=== PATIENT | female | born 1960 | race Caucasian/White ===

== ENCOUNTER 2018-01-28 09:12 | Emergency (ER) | payer BC, OTHER ==
[~2018-01-28 09:12] MED LIST: AMLO25PO PO; FAMO40TA7 PO; INSU100I3 SQ; INSU100V12 SQ; LOSA1TAB2 PO; RALO60TA PO; ROSU20TA PO; TYL3 PO; VENL75TA63 PO; VITA400C70 PO
[2018-01-28] MEDS ORDERED: ONDANSETRON HCL MDV 20ML 2 MG/ML VIAL ONE (09:56)
[2018-01-28] MEDS ORDERED: SODIUM CHLORIDE 0.9% 1000ML 1,000 ML IV ONE (09:56)
[2018-01-28 10:00] LABS: BASOPHILS % (AUTO) 0.4 % (0.0-5.0); EOSINOPHILS % (AUTO) 0.6 % (0.0-8.0); LYMPHOCYTES % (AUTO) 14.2 % (21.0-51.0); MEAN CORPUSCULAR HGB CONC 34.5 g/dL (32.0-36.0); MONOCYTES % (AUTO) 8.6 % (3.0-13.0); NEUTROPHILS % (AUTO) 76.2 % (40.0-77.0); PLATELET COUNT (AUTO) 198 K/uL (130-400); RED BLOOD CELL COUNT(AUTO) 5.16 MIL/uL (4.00-5.50); RED CELL DISTRIBUTION WIDTH 13.4 % (11.0-15.5); WHITE BLOOD COUNT (AUTO) 12.5 K/uL (4.8-10.8)
[2018-01-28 10:12] LABS: APPEARANCE,URINE Cloudy (CLEAR); BILIRUBIN,URINE Negative (NEGATIVE); COLOR,URINE Yellow (YELLOW); GLUCOSE, URINE (UA) >=1000 mg/dL (NEGATIVE); KETONES,URINE >=160 mg/dL (NEGATIVE); LEUKOCYTE ESTERASE ,URINE Negative (NEGATIVE); NITRATE,URINE Negative (NEGATIVE); OCCULT BLOOD,URINE Trace (NEGATIVE); PH,URINE 5.5 (5.0-8.0); PROTEIN,URINE Trace (NEGATIVE)
[2018-01-28 10:27] LABS: ALBUMIN 3.9 g/dL (3.5-5.0); TOTAL PROTEIN, SERUM 7.6 g/dL (6.0-8.3)
[2018-01-28] MEDS ORDERED: KETOROLAC TROMETHAMINE 30MG/ML ONE (10:56)
[2018-01-28 11:46] LABS: BACTERIA,URINE Moderate /HPF (None Seen); MUCUS,URINE Few LPF (None Seen); SQUAMOUS EPITHELIAL CELL,UR Many /HPF (0-2)
[2018-01-28 13:37] LABS: OCCULT BLOOD STOOL SINGLE ONLY POSITIVE (NEGATIVE)
[2018-01-28] MEDS ORDERED: METRONIDAZOLE 500 MG TABLET ONE (14:12)
== END 2018-01-28 14:22 | disposition home or self-care (01) ==
LOC: EDH 09:12
DX: A09 Infectious gastroenteritis and colitis, unspecified (principal); E11.9 Type 2 diabetes mellitus without complications; I10 Essential (primary) hypertension; J45.909 Unspecified asthma, uncomplicated; K21.9 Gastro-esophageal reflux disease without esophagitis; M81.0 Age-related osteoporosis without current pathological fracture; Z88.2 Allergy status to sulfonamides; Z88.1 Allergy status to other antibiotic agents; Z88.8 Allergy status to other drugs, medicaments and biological substances; Z72.0 Tobacco use
CPT/HCPCS: 36415; 71045; 74176; 80053; 81001; 82150; 82270; 82550; 82553; 83690; 84484; 85025; 86677; 87205; 87324; 93005; 96361; 96374; 96375; 99285; J1885; J7030

== ENCOUNTER → 2018-04-08 | Outpatient (CLI) | payer OTHER | END | disposition home or self-care (01) | LOC: RAH 11:20 | PROVIDERS: ATTEND Family Medicine | DX: Z13.6 Encounter for screening for cardiovascular disorders (principal) | CPT/HCPCS: 75571 ==

== ENCOUNTER → 2018-10-12 | Outpatient (CLI) | payer BC ==
[~2018-10-12] MED LIST changes: +ACET1TAB25 PO; +AEC81 PO; +AMLO10TA6 PO; -AMLO25PO PO; +BUSP5TAB3 PO; +CHOL100018 PO; +HUMALOG SQ; +HYOS-27 SL; +INSLAN SQ; -INSU100I3 SQ; -INSU100V12 SQ; -LOSA1TAB2 PO; +LOSA1TAB42 PO; +METO-408 PO; +NAPR220T57 PO; +TRAZ-185 PO; -TYL3 PO; -VITA400C70 PO; +VITAMIN B12 PO; +VITAMIN E PO
== END | disposition home or self-care (01) ==
LOC: RAH 12:31
PROVIDERS: ATTEND Family Medicine
DX: N28.1 Cyst of kidney, acquired (principal); K76.0 Fatty (change of) liver, not elsewhere classified
CPT/HCPCS: 74176

== ENCOUNTER → 2019-06-29 | Outpatient (CLI) | payer BC ==
[~2019-06-29] MED LIST changes: -AMLO10TA6 PO; +AMLO10TA7 PO; -ROSU20TA PO; +ROSU20TA23 PO
== END | disposition home or self-care (01) ==
LOC: RAH 08:31
PROVIDERS: ATTEND Orthopaedic Surgery
DX: M75.102 Unspecified rotator cuff tear or rupture of left shoulder, not specified as traumatic (principal); M19.012 Primary osteoarthritis, left shoulder
CPT/HCPCS: 73221

== ENCOUNTER 2020-01-18 07:11 | Day surgery (SDC) | payer BC ==
[2020-01-12 13:53] VITALS: BP 136/75
[2020-01-12 14:08] LABS: BASOPHILS % (AUTO) 0.7 % (0.0-5.0); EOSINOPHILS % (AUTO) 2.1 % (0.0-8.0); HEMATOCRIT 43.7 % (36-48); LYMPHOCYTES % (AUTO) 32.5 % (21.0-51.0); MEAN CORPUSCULAR HEMOGLOBIN 31.9 pg (27.0-33.0); MEAN CORPUSCULAR VOLUME 96.9 fL (79-99); MONOCYTES % (AUTO) 11.1 % (3.0-13.0); NEUTROPHILS % (AUTO) 53.1 % (40.0-77.0); PLATELET COUNT (AUTO) 185 K/uL (130-400); RED BLOOD CELL COUNT(AUTO) 4.51 MIL/uL (4.00-5.50); RED CELL DISTRIBUTION WIDTH 12.5 % (11.0-15.5); WHITE BLOOD COUNT (AUTO) 9.2 K/uL (4.8-10.8)
[2020-01-12 14:27] LABS: CREATININE 0.8 mg/dL (0.5-1.5); POTASSIUM 4.2 mmol/L (3.5-5.1)
[~2020-01-18] VITALS: Ht 163.8 cm; Wt 95.6 kg
[2020-01-18] VITALS (17 sets, daily range): BP systolic 111–145; BP diastolic 66–84
[2020-01-18] MEDS: CEFAZOLIN SODIUM 1 GM VIAL IVP SCH ×2 (05:00→09:17)
[~2020-01-18 07:11] MED LIST changes: -ACET1TAB25 PO; +ALBU8.5H8 IH; +AMLO-258 PO; -AMLO10TA7 PO; -BUSP5TAB3 PO; -FAMO40TA7 PO; -HUMALOG SQ; -HYOS-27 SL; +INSU100C14 SQ; +LORA10CA PO; +LOSA100T58 PO; -LOSA1TAB42 PO; -METO-408 PO; +METO25TA6 PO; +MULT-1258 PO; +NAPR-1192 PO; -NAPR220T57 PO; -ROSU20TA23 PO; +VENL75CA97 PO; -VENL75TA63 PO; -VITAMIN E PO
[2020-01-18] MEDS ORDERED: SODIUM CHLORIDE 0.9% 1000ML 1,000 ML IV ONE (07:37)
[2020-01-18] MEDS ORDERED: BUPIVACAINE/PF 0.5% 10ML VIAL ONE ×3 (08:17→08:18)
[2020-01-18] MEDS ORDERED: LIDOCAINE PF 2% 5ML ABBOJECT ONE (08:54)
[2020-01-18] MEDS ORDERED: MIDAZOLAM HCL 1 MG/ML 2ML VIAL ONE (08:54)
[2020-01-18] MEDS ORDERED: DEXAMETHASONE SOD PHOSPHATE 10MG/ML 1ML VIAL ONE (08:54)
[2020-01-18] MEDS ORDERED: PROPOFOL 10 MG/ML 20ML VIAL IV ONE ×2 (08:55→10:00)
[2020-01-18] MEDS ORDERED: FENTANYL CITRATE PF 50 MCG/1 ML 2ML VIAL ONE ×2 (08:55→09:38)
[2020-01-18] MEDS ORDERED: ONDANSETRON HCL 4 MG/2 ML VIAL ONE (08:55)
[2020-01-18] MEDS ORDERED: EPHEDRINE SULFATE 50 MG/ML AMPULE ONE (09:25)
[2020-01-18] MEDS ORDERED: ROCURONIUM 10MG/1ML SYR 10 MG/ML ML ONE (09:29)
--- NOTE | 2020-01-18 11:40 | NUR ---
REPORT REPORT FROM IRIS MCKEON. PT LYING IN BED. DRSG TO LEFT KNEE. DRY AND INTACT
--- NOTE | 2020-01-18 11:50 | NUR ---
DISCHARGE ORAL AND WRITTEN DISCHARGE INSTRUCTIONS GIVEN TO PT AND PTS DAUGHTER. PT ALREADY HAS PRESCRIPTION GIVEN BY DR. BURRELL AT HOME.
== END 2020-01-18 12:00 | disposition home or self-care (01) ==
LOC: SUH 07:11 → DAH 07:11 → SUH 12:00
PROVIDERS: ATTEND Orthopaedic Surgery
DX: S72.435A Nondisplaced fracture of medial condyle of left femur, initial encounter for closed fracture (principal); S83.242A Other tear of medial meniscus, current injury, left knee, initial encounter; M94.262 Chondromalacia, left knee; M65.9 Synovitis and tenosynovitis, unspecified; M17.12 Unilateral primary osteoarthritis, left knee; E66.01 Morbid (severe) obesity due to excess calories; E11.9 Type 2 diabetes mellitus without complications; F41.9 Anxiety disorder, unspecified; F32.9 Major depressive disorder, single episode, unspecified; Z88.2 Allergy status to sulfonamides; Z88.1 Allergy status to other antibiotic agents; Z88.8 Allergy status to other drugs, medicaments and biological substances; X58.XXXA Exposure to other specified factors, initial encounter; Y93.89 Activity, other specified; Y92.89 Other specified places as the place of occurrence of the external cause; Y99.8 Other external cause status
CPT/HCPCS: 29879; 29881; 36415; 80048; 82948 ×2; 85025; A4213; A4215; A4221; A4222; A4223; A4606; A4649 ×2; A4663; A4930; A5120; A6223; A6260; J0690; J1100; J2001; J2250; J2405; J2704 ×2; J3010 ×2; J3490 ×4; J7030

== ENCOUNTER 2020-10-24 10:34 | Inpatient (IN) | payer BC ==
[~2020-10-24] VITALS: Ht 162.6 cm; Wt 97.1 kg
[2020-10-24] MEDS ORDERED: ONDANSETRON HCL 4 MG/2 ML VIAL ONE ×2 (11:50→15:21)
[2020-10-24] MEDS ORDERED: MORPHINE SULFATE 4 MG/1ML SYG ONE ×3 (11:51→19:57)
[2020-10-24 12:03] LABS: BASOPHILS % (AUTO) 0.5 % (0.0-5.0); EOSINOPHILS % (AUTO) 0.3 % (0.0-8.0); HEMATOCRIT 45.2 % (36-48); LYMPHOCYTES % (AUTO) 9.6 % (21.0-51.0); MEAN CORPUSCULAR HEMOGLOBIN 32.8 pg (27.0-33.0); MEAN CORPUSCULAR HGB CONC 33.8 g/dL (32.0-36.0); MONOCYTES % (AUTO) 5.6 % (3.0-13.0); NEUTROPHILS % (AUTO) 83.4 % (40.0-77.0); PLATELET COUNT (AUTO) 164 K/uL (130-400); RED BLOOD CELL COUNT(AUTO) 4.66 MIL/uL (4.00-5.50); RED CELL DISTRIBUTION WIDTH 12.7 % (11.0-15.5); WHITE BLOOD COUNT (AUTO) 14.5 K/uL (4.8-10.8)
[2020-10-24 12:15] LABS: CREATININE 0.9 mg/dL (0.5-1.5); POTASSIUM 4.2 mmol/L (3.5-5.1)
[2020-10-24 12:20] LABS: ALBUMIN 3.6 g/dL (3.5-5.0); BILIRUBIN,TOTAL 0.5 mg/dL (0.2-1.0); TOTAL PROTEIN, SERUM 7.2 g/dL (6.0-8.3)
[2020-10-24 12:39] LABS: INR 1.03 (0.85-1.15)
[2020-10-24 12:40] LABS: PARTIAL THROMBOPLASTIN TIME 24.9 SEC (26.3-35.5)
[2020-10-24] MEDS ORDERED: DEXTROSE 50%-WATER 50 ML DISP.SYRIN IV PRN (14:45)
[2020-10-24] MEDS ORDERED: CLONIDINE HCL 0.1 MG TABLET PO PRN (14:45)
[2020-10-24] MEDS ORDERED: ACETAMINOPHEN 650 MG SUPPOSITORY RC PRN (14:45)
[2020-10-24] MEDS ORDERED: GLUCAGON 1MG KIT 1 MG ML IM PRN (14:45)
[2020-10-24] MEDS ORDERED: POTASSIUM CHLORIDE 10% ELIXIR 20 MEQ/15 ML UDCUP PO PRN (14:45)
[2020-10-24] MEDS ORDERED: ACETAMINOPHEN 325 MG TAB PO PRN (14:45)
[2020-10-24] MEDS ORDERED: POTASSIUM CHLORIDE 20MEQ/100ML 100 ML IV PRN (14:45)
[2020-10-24] MEDS ORDERED: MORPHINE SULFATE 2 MG/ML 1ML SYG IVP PRN (14:45)
[2020-10-24] MEDS ORDERED: LIDOCAINE HCL-MPF 1% 2ML VIAL IV PRN (14:45)
[2020-10-24] MEDS ORDERED: POTASSIUM CHLORIDE 20 MEQ ERTAB PO PRN (14:45)
[2020-10-24] MEDS: SODIUM CHLORIDE 0.9% 1000ML 1,000 ML IV SCH ×2 (14:45→22:45)
[2020-10-24] MEDS ORDERED: TEMAZEPAM 15 MG CAPSULE PO PRN (14:45)
[2020-10-24] MEDS ORDERED: ALBUTEROL SULFATE 0.083% 2.5 MG/3 ML INH IH PRN (14:45)
[2020-10-24 15:53] LABS: CREATINE KINASE, TOTAL 84 U/L (21-232); MYOGLOBIN 50 ng/mL (10-92); TROPONIN I < 0.04 ng/mL (0.00-0.06)
[2020-10-24] MEDS ORDERED: SODIUM CHLORIDE 0.9% 1000ML 1,000 ML IV ONE (18:45)
[2020-10-24] MEDS: INSULIN HUMULIN R 100 UNIT/ML 3ML SQ SCH (21:00)
[2020-10-24 21:10] LABS: CREATINE KINASE, TOTAL 70 U/L (21-232); MYOGLOBIN 39 ng/mL (10-92); TROPONIN I < 0.04 ng/mL (0.00-0.06)
[2020-10-25] VITALS (8 sets, daily range): BP systolic 150–172; BP diastolic 77–98
[2020-10-25] MEDS ORDERED: MORPHINE SULFATE 4 MG/1ML SYG ONE (00:04)
[2020-10-25 01:18] LABS: APPEARANCE,URINE Clear (CLEAR); BILIRUBIN,URINE Negative (NEGATIVE); COLOR,URINE Yellow (YELLOW); GLUCOSE, URINE (UA) 500 mg/dL (NEGATIVE); KETONES,URINE Trace mg/dL (NEGATIVE); LEUKOCYTE ESTERASE ,URINE Negative (NEGATIVE); NITRATE,URINE Negative (NEGATIVE); OCCULT BLOOD,URINE Negative (NEGATIVE); PROTEIN,URINE Negative (NEGATIVE)
--- NOTE | 2020-10-25 01:20 | NUR ---
ER ADMIT Arrived from ER with sling to rt arm,c/o pain to rt upper arm,good CMS noted.Admission care rendered.Home meds not not up to date,pt instructed to have her bring in am.
[2020-10-25 01:27] LABS: BACTERIA,URINE None Seen /HPF (None Seen); RBC,URINE None Seen /HPF (0-1); SQUAMOUS EPITHELIAL CELL,UR Moderate /HPF (0-2); WBC,URINE None Seen /HPF (0-1); YEAST,URINE BUDDING None Seen /HPF (None Seen)
[2020-10-25 02:54] LABS: BASOPHILS % (AUTO) 0.4 % (0.0-5.0); EOSINOPHILS % (AUTO) 0.9 % (0.0-8.0); HEMATOCRIT 41.7 % (36-48); MEAN CORPUSCULAR HEMOGLOBIN 33.1 pg (27.0-33.0); MEAN CORPUSCULAR HGB CONC 33.8 g/dL (32.0-36.0); MEAN CORPUSCULAR VOLUME 97.9 fL (79-99); MONOCYTES % (AUTO) 9.3 % (3.0-13.0); NEUTROPHILS % (AUTO) 72.1 % (40.0-77.0); PLATELET COUNT (AUTO) 157 K/uL (130-400); RED BLOOD CELL COUNT(AUTO) 4.26 MIL/uL (4.00-5.50); RED CELL DISTRIBUTION WIDTH 12.8 % (11.0-15.5); WHITE BLOOD COUNT (AUTO) 12.6 K/uL (4.8-10.8)
[2020-10-25 03:13] LABS: HEMOGLOBIN A1C 9.2 % (4.0-6.0)
[2020-10-25 03:17] LABS: CARBON DIOXIDE 27 mmol/L (21-32); CHLORIDE 105 mmol/L (101-111); CREATINE KINASE, TOTAL 64 U/L (21-232); CREATININE 0.8 mg/dL (0.5-1.5); GLOMERULAR FILTR. RATE CALC 78 mL/min (>60); GLUCOSE,RANDOM 251 mg/dL (70-105); MYOGLOBIN 41 ng/mL (10-92); SODIUM SERUM 140 mmol/L (136-145); THYROID STIMULATING HORMONE 1.46 uIU/mL (0.36-3.74); TROPONIN I < 0.04 ng/mL (0.00-0.06); UREA NITROGEN, BLOOD 13 mg/dL (7-18)
[2020-10-25] MEDS: SODIUM CHLORIDE 0.9% 1000ML 1,000 ML IV SCH ×3 (03:56→23:32)
[2020-10-25] MEDS: MORPHINE SULFATE 4 MG/1ML SYG IVP PRN ×3 (03:57→18:24)
--- NOTE | 2020-10-25 05:01 | NUR ---
PAIN Pt medicated with Morphine for c/o of pain to her rt arm.
--- NOTE | 2020-10-25 06:01 | NUR ---
MED EFFECT Pt verbalized relif of pain.
[2020-10-25] MEDS: INSULIN HUMULIN R 100 UNIT/ML 3ML SQ SCH ×4 (06:12→23:43)
--- NOTE | 2020-10-25 08:01 | NUR ---
ORTHO CONSULT Paged Dr Diaz thru answering service,report given to Connie Britton.
[2020-10-25] MEDS: POLYETHYLENE GLYCOL 3350 17 GM POWD.PACK PO SCH (08:42)
[2020-10-25] MEDS: ASCORBIC ACID 500 MG TAB PO SCH (08:42)
[2020-10-25] MEDS ORDERED: FAMO40TA7 PO (10:17)
[2020-10-25] MEDS ORDERED: ACET12.52 PO (10:17)
[2020-10-25] MEDS: HYDROCODONE/ACETAMINOPHEN 5/325 MG TAB PO PRN (13:14)
--- NOTE | 2020-10-25 15:26 | NUR ---
ERIKA MCGILL/ANA MET WITH PATIENT AN DAUGHTER IN ROOM. PER PATIENT, LIVES WITH SPOUSE, IS INDEPENDENT PRIOR TO HOSPITALIZATION, HAS USE OF CPAP, NO PROVIDERS OR HOME HEALTH IN USE, AND FEELS SAFE TO RETURN HOME. PER DAUGHTER, CAN CALL HER FIRST FOR EMERGENCIES AT FOLLOWING PHONE NUMBER: [phone]. Addendum: 10/25/20 at 1528 by MARY MACK RN CM Amended: Links added.
--- NOTE | 2020-10-25 18:00 | NUR ---
note HAS EEN STABLE ALL DAY. HAS BEEN GETTING MEDICATION FOR PAIN THROUGHOUT THE DAY. DR CONNER CAME IN TO CONSULT AND HE WILL TAKE HER TO SURGERY TOMORROW. SHE HAD BEEN NPO BUT OR SCHEDULE WAS FULL AND SHE WOULD'VE GONE AT NIGHT TONIGHT IF SHE STAYED ON. SHE WAS GIVEN DINNER AND SHE WILL BE NPO AFTER MIDNIGHT FOR SURGERY TOMORROW AT 12:00. SHE HAS SENSATION AND MOVEMENT TO RIGHT FINGERS, HAND AND SHE WEARS ARM SLING. FINGERS WARM TO TOUCH.
[2020-10-26] VITALS (22 sets, daily range): BP systolic 106–174; BP diastolic 65–94
[2020-10-26] MEDS: ONDANSETRON HCL 4 MG/2 ML VIAL IVP PRN ×2 (03:49→09:27)
[2020-10-26] MEDS: MORPHINE SULFATE 4 MG/1ML SYG IVP PRN ×3 (03:49→14:21)
[2020-10-26] MEDS: SODIUM CHLORIDE 0.9% 1000ML 1,000 ML IV SCH ×6 (03:51→22:45)
[2020-10-26 04:41] LABS: HEMATOCRIT 40.4 % (36-48); MEAN CORPUSCULAR HEMOGLOBIN 32.7 pg (27.0-33.0); MEAN CORPUSCULAR HGB CONC 33.7 g/dL (32.0-36.0); MEAN CORPUSCULAR VOLUME 97.1 fL (79-99); RED BLOOD CELL COUNT(AUTO) 4.16 MIL/uL (4.00-5.50); RED CELL DISTRIBUTION WIDTH 12.5 % (11.0-15.5); WHITE BLOOD COUNT (AUTO) 10.2 K/uL (4.8-10.8)
[2020-10-26 04:47] LABS: CREATININE 0.7 mg/dL (0.5-1.5); POTASSIUM 3.8 mmol/L (3.5-5.1)
[2020-10-26] MEDS: INSULIN HUMULIN R 100 UNIT/ML 3ML SQ SCH ×4 (06:30→21:30)
[2020-10-26] MEDS: ASCORBIC ACID 500 MG TAB PO SCH ×2 (08:44→08:46)
[2020-10-26] MEDS: POLYETHYLENE GLYCOL 3350 17 GM POWD.PACK PO SCH ×2 (08:45→08:46)
--- NOTE | 2020-10-26 16:25 | NUR ---
PT TAKEN TO HOLDING AREA BY BED FOR RIGHT REVERSE TOTAL SHOULDER ARTHROPLASTY
[2020-10-26] MEDS ORDERED: DEXAMETHASONE SOD PHOSPHATE 10MG/ML 1ML VIAL ONE (16:48)
[2020-10-26] MEDS ORDERED: LIDOCAINE PF 2% 5ML ABBOJECT ONE (16:48)
[2020-10-26] MEDS ORDERED: PROPOFOL 10 MG/ML 20ML VIAL IV ONE (16:49)
[2020-10-26] MEDS ORDERED: ONDANSETRON HCL 4 MG/2 ML VIAL ONE (16:49)
[2020-10-26] MEDS ORDERED: CEFAZOLIN SODIUM 1 GM VIAL ONE (16:49)
[2020-10-26] MEDS ORDERED: MIDAZOLAM HCL 1 MG/ML 2ML VIAL ONE (16:49)
[2020-10-26] MEDS ORDERED: FENTANYL CITRATE PF 50 MCG/1 ML 2ML VIAL ONE (16:49)
[2020-10-26] MEDS ORDERED: ROPIVACAINE 0.5% 5MG/ML 30ML IJ ONE (16:49)
[2020-10-26] MEDS ORDERED: ROCURONIUM 10MG/1ML SYR 10 MG/ML ML ONE ×2 (16:50→17:40)
[2020-10-26] MEDS ORDERED: EPHEDRINE SULFATE 50 MG/ML AMPULE ONE (17:15)
[2020-10-26] MEDS ORDERED: GLYCOPYRROLATE 1 MG/5 ML SYRINGE ONE (19:19)
[2020-10-26] MEDS ORDERED: NEOSTIGMINE 5MG/5ML SYR IV ONE (19:20)
[2020-10-26] MEDS ORDERED: SUGAMMADEX SODIUM 200 MG/2 ML VIAL IV ONE (19:31)
[2020-10-26] MEDS ORDERED: IPRATROPIUM 0.5 MG/2.5 ML INH IH ONE (19:37)
--- NOTE | 2020-10-26 20:05 | NUR ---
RICA CALLED TO GIVE REPORT. PT S/P RIGHT REVERSE TOTAL SHOULDER ARTHROPLASTY DONE UNDER REGIONAL ANESTHESIA. INCISION WITH XEROFORM AND SECURED WITH MEDIPORE TAPE WITH SLING IN PLACE. ANCEF 2GMS ADMINISTERED AND PENDING TO RECEIVE X2 MORE DOSES Q8HRS. V/S STABLE, PENDING TO COME UP AT 2029.
[2020-10-26] MEDS ORDERED: FERROUS FUMARATE 324 MG TABLET PO PRN (20:30)
[2020-10-26] MEDS ORDERED: CALCIUM CARBONATE 500 MG TABLET PO PRN (20:30)
[2020-10-26] MEDS ORDERED: DIPHENHYDRAMINE HCL 25 MG CAPSULE PO PRN (20:30)
[2020-10-26] MEDS ORDERED: DiphenhydrAMINE HCL 50 MG/ML VIAL IVP PRN (20:30)
[2020-10-26] MEDS ORDERED: ACETAMINOPHEN EXTRA STRENGTH 500 MG TABLET PO SCH (20:30)
[2020-10-27] MEDS ORDERED: CEFAZOLIN SODIUM 1 GM VIAL ONE (02:24)
[2020-10-27] MEDS: CEFAZOLIN SODIUM 1 GM VIAL IVP SCH ×3 (02:30→18:30)
[2020-10-27] MEDS: HYDROCODONE/ACETAMINOPHEN 5/325 MG TAB PO PRN ×2 (02:43→09:30)
[2020-10-27 04:00] VITALS: BP 136/77
[2020-10-27] MEDS: SODIUM CHLORIDE 0.9% 1000ML 1,000 ML IV SCH ×2 (06:30→06:45)
[2020-10-27] MEDS: INSULIN HUMULIN R 100 UNIT/ML 3ML SQ SCH ×3 (07:34→16:30)
[2020-10-27 08:00] VITALS: BP 145/78
[2020-10-27] MEDS ORDERED: POLYETHYLENE GLYCOL 3350 17 GM POWD.PACK PO SCH (09:00)
[2020-10-27] MEDS: ASCORBIC ACID 500 MG TAB PO SCH (09:30)
[2020-10-27] MEDS: POLYETHYLENE GLYCOL 3350 17 GM POWD.PACK PO SCH (09:30)
[2020-10-27 12:00] VITALS: BP 125/83
[2020-10-27] MEDS ORDERED: PSYLLIUM SEED 1 EACH PACKET PO SCH (12:00)
[2020-10-27] MEDS ORDERED: TRAMADOL HCL 50 MG TABLET PO PRN (12:30)
[2020-10-27] MEDS: ONDANSETRON HCL 4 MG/2 ML VIAL IVP PRN (12:52)
[2020-10-27 16:00] VITALS: BP 179/89
[2020-10-27] MEDS ORDERED: KETOROLAC TROMETHAMINE 30MG/ML ONE (18:07)
--- NOTE | 2020-10-27 18:45 | NUR ---
PATIENT WAS DISCHARGED FROM [facility] AT 1845 ON OCTOBER 27, 2020. THE PATIENT WAS EDUCATED ON ALL NEW PRESCRIPTIONS THAT WERE WRITTEN BY DR. CONNER, PROPER NON WEIGHT BEARING STATUS TO RIGHT ARM, AND EDUCATED ON ALL SECONDARY DIAGNOSES. THE PATIENT UNDERSTOOD ALL TEACHING THAT WAS GIVEN, BOTH THE PATIENT AND HER DAUGHTER WERE BOTH EDUCATED ON ALL ASPECTS OF THE DISCHARGE AND HAD NO FURTHER QUESTIONS. ORIENTATION AND MOBILITY INSTRUCTOR WAS REMOVED AND IV WAS DISCONTINUED AND INTACT.
[2020-10-27] MEDS ORDERED: KETOROLAC TROMETHAMINE 15MG/ML IV SCH (19:45)
[2020-10-28] MEDS ORDERED: BISACODYL 5 MG TABLET.DR PO PRN (20:30)
[2020-10-29] MEDS ORDERED: BISACODYL 10 MG SUPP.RECT RC PRN (20:30)
== END 2020-10-27 19:00 | disposition home or self-care (01) | DRG 483 ==
LOC: EDH 10:34 → EDHIP 14:38 → 3DH 10-25 00:07
PROVIDERS: ADMIT Internal Medicine Critical Care Medicine; ATTEND Internal Medicine Critical Care Medicine
PROC: 0RRJ00Z Replacement of Right Shoulder Joint with Reverse Ball and Socket Synthetic Substitute, Open Approach (ICD-10-PCS; principal; 2020-10-26 16:40)
DX: S42.241A 4-part fracture of surgical neck of right humerus, initial encounter for closed fracture (principal); I10 Essential (primary) hypertension; E11.9 Type 2 diabetes mellitus without complications; J45.909 Unspecified asthma, uncomplicated; Z20.828 Contact with and (suspected) exposure to other viral communicable diseases; E78.5 Hyperlipidemia, unspecified; K76.0 Fatty (change of) liver, not elsewhere classified; F17.200 Nicotine dependence, unspecified, uncomplicated; Z79.4 Long term (current) use of insulin; Z79.82 Long term (current) use of aspirin; Z90.710 Acquired absence of both cervix and uterus; Z79.899 Other long term (current) drug therapy; Z88.2 Allergy status to sulfonamides; Z88.8 Allergy status to other drugs, medicaments and biological substances; Z88.5 Allergy status to narcotic agent; W18.39XA Other fall on same level, initial encounter; Y93.89 Activity, other specified; Y92.89 Other specified places as the place of occurrence of the external cause; Y99.8 Other external cause status
CPT/HCPCS: 36415; 71045; 73030; 73060; 80048; 80053; 81001; 82550; 82948; 83036; 83874; 84443; 84484; 85025; 85027; 85610; 85730; 86850; 86900; 86901; 87426; 93005; 94640; 94664; G0378; J0690; J1100; J1815; J1885; J2001; J2250; J2270; J2405; J2704; J2710; J2795; J3010; J3490; J7030; U0003

== ENCOUNTER → 2021-05-30 | Outpatient (CLI) | payer BC ==
[~2021-05-30] MED LIST changes: +ACET12.56 PO; +FAMO40TA7 PO; -NAPR-1192 PO
== END | disposition home or self-care (01) ==
LOC: RAH 10:24
PROVIDERS: ATTEND Family Medicine
DX: I51.7 Cardiomegaly (principal); M85.88 Other specified disorders of bone density and structure, other site; J44.9 Chronic obstructive pulmonary disease, unspecified; Z96.611 Presence of right artificial shoulder joint
CPT/HCPCS: 71046

== ENCOUNTER → 2024-05-26 | Outpatient (CLI) | payer BC ==
[~2024-05-26] MED LIST changes: -LOSA100T58 PO; +LOSA100T59 PO; +RALO60 PO; -RALO60TA PO
[2024-05-26 09:38] LABS: ALBUMIN 3.8 g/dL (3.5-5.0); BILIRUBIN,TOTAL 0.5 mg/dL (0.2-1.0); CREATININE 0.8 mg/dL (0.5-1.0); POTASSIUM 4.4 mmol/L (3.5-5.1); TOTAL PROTEIN, SERUM 7.4 g/dL (6.0-8.3)
[2024-05-26 10:48] LABS: HEMOGLOBIN A1C 6.7 % (4.0-6.0)
== END | disposition home or self-care (01) ==
LOC: LAB 08:34
PROVIDERS: ATTEND Student in an Organized Health Care Education/Training Program
DX: E11.65 Type 2 diabetes mellitus with hyperglycemia (principal)
CPT/HCPCS: 36415; 80053; 80061; 82043; 82570; 83036

== ENCOUNTER → 2024-05-31 | Outpatient (CLI) | payer BC | END | disposition home or self-care (01) | LOC: RAH 10:33 | PROVIDERS: ATTEND Student in an Organized Health Care Education/Training Program | DX: R07.9 Chest pain, unspecified (principal) | CPT/HCPCS: 75574 ==

== ENCOUNTER 2024-07-26 07:50 | Day surgery (SDC) | payer MEDICARE ==
[2024-07-23 08:38] LABS: BASOPHILS # (AUTO) 0.08 K/uL (0.00-0.20); BASOPHILS % (AUTO) 0.8 % (0.0-5.0); EOSINOPHILS # (AUTO) 0.27 K/uL (0.00-0.70); EOSINOPHILS % (AUTO) 2.6 % (0.0-8.0); HEMATOCRIT 42.5 % (36-48); IMMATURE GRANULOCYTE ABSOLUTE 0.04 K/uL (0-1); LYMPHOCYTES # (AUTO) 2.4 K/uL (1.0-4.8); LYMPHOCYTES % (AUTO) 23.4 % (21.0-51.0); MEAN CORPUSCULAR HEMOGLOBIN 33.1 pg (27.0-33.0); MEAN CORPUSCULAR HGB CONC 32.9 g/dL (32.0-36.0); MEAN CORPUSCULAR VOLUME 100.5 fL (79-99); MONOCYTES # (AUTO) 0.9 K/uL (0.1-1.0); MONOCYTES % (AUTO) 8.6 % (3.0-13.0); NEUTROPHILS # (AUTO) 6.7 K/uL (1.8-7.7); NEUTROPHILS % (AUTO) 64.2 % (40.0-77.0); PLATELET COUNT (AUTO) 187 K/uL (130-400); RED BLOOD CELL COUNT(AUTO) 4.23 MIL/uL (4.00-5.50); RED CELL DISTRIBUTION WIDTH 13.3 % (11.0-15.5); WHITE BLOOD COUNT (AUTO) 10.4 K/uL (4.8-10.8)
[2024-07-23 08:43] LABS: APPEARANCE,URINE CLEAR (CLEAR); BILIRUBIN,URINE NEGATIVE (NEGATIVE); COLOR,URINE LIGHT-YELLOW (YELLOW); GLUCOSE, URINE (UA) NEGATIVE (NEGATIVE); KETONES,URINE NEGATIVE (NEGATIVE); LEUKOCYTE ESTERASE ,URINE 75 Leu/uL (NEGATIVE); NITRATE,URINE NEGATIVE (NEGATIVE); OCCULT BLOOD,URINE NEGATIVE (NEGATIVE); PH,URINE 6.5 (5.0-8.0); PROTEIN,URINE NEGATIVE (NEGATIVE); UROBILINOGEN,URINE 0.2 mg/dL (0.2-1.0)
[2024-07-23 08:48] LABS: CREATININE 0.8 mg/dL (0.5-1.0); POTASSIUM 4.4 mmol/L (3.5-5.1)
[2024-07-23 08:49] LABS: INR 1.02 (0.85-1.15)
[2024-07-23 08:50] VITALS: BP 156/83; PULSE 60; RESP 16; TEMP 97
[2024-07-23 08:50] LABS: ADD UA MICROSCOPIC YES
[2024-07-23 08:50] LABS: PARTIAL THROMBOPLASTIN TIME 26.8 SEC (26.3-35.5)
[2024-07-23 08:52] LABS: BACTERIA,URINE RARE /HPF (None Seen); MUCUS,URINE RARE LPF (None Seen); SQUAMOUS EPITHELIAL CELL,UR RARE /HPF (0-2)
[2024-07-23 09:03] LABS: B-TYPE NATRIURETIC PEPTIDE 139 pg/mL (0-100)
[~2024-07-26] VITALS: Ht 160 cm; Wt 73.6 kg
[2024-07-26] VITALS (11 sets, daily range): BP systolic 116–160; BP diastolic 65–88; PULSE 54–69; RESP 15–18; TEMP 97.7–97.8
[~2024-07-26 07:50] MED LIST changes: +ABAL1.56 SQ; +ACET-2079 PO; -ACET12.56 PO; +ALBU0.63 NEB; -ALBU8.5H8 IH; +BUDE10.2 IH; -CHOL100018 PO; -FAMO40TA7 PO; -INSLAN SQ; -INSU100C14 SQ; +INSU300I SQ; -LORA10CA PO; -LOSA100T59 PO; +LOSA1TAB42 PO; +METO-408 PO; -METO25TA6 PO; -MULT-1258 PO; -RALO60 PO; +ROSU5TAB43 PO; +TIRZ2.5P SQ; -TRAZ-185 PO; -VITAMIN B12 PO
[2024-07-26] MEDS: 0.9%NACL 1000ML 1,000 ML IV ONE (09:35)
[2024-07-26] MEDS ORDERED: LIDOCAINE HCL 400MG/20ML VIAL ONE (11:40)
[2024-07-26] MEDS ORDERED: NITROGLYCERIN 50MG VIAL ONE (11:41)
[2024-07-26] MEDS ORDERED: IOHEXOL 350 MG/ML 100ML INFUS..BTL IV ONE (11:41)
[2024-07-26] MEDS ORDERED: HEParin-NS 1,000 UNIT/500 ML 1,000 ML IV ONE (11:41)
[2024-07-26] MEDS ORDERED: HEParin 10,000 UNIT/10ML (1,000 UNIT/ML) VIAL ONE (12:10)
[2024-07-26] MEDS ORDERED: niCARDIpine 25MG INJ IV ONE (12:11)
[2024-07-26] MEDS ORDERED: MEPERIDINE-PF 25 MG/ML SYG ONE ×3 (12:14→12:55)
[2024-07-26] MEDS ORDERED: MIDAZOLAM HCL 1 MG/ML 2ML VIAL ONE ×3 (12:15→12:56)
[2024-07-26] MEDS ORDERED: ATROPINE 1MG SYG IVP ONE (12:23)
[2024-07-26] MEDS ORDERED: CLOPIDOGREL 300MG TAB ONE (13:36)
[2024-07-26] MEDS ORDERED: 0.9%NACL 1000ML 1,000 ML IV SCH (14:30)
[2024-07-26] MEDS ORDERED: GLUCAGON 1MG KIT 1 MG ML IM PRN (14:30)
[2024-07-26] MEDS ORDERED: DEXTROSE 50%-WATER 50 ML DISP.SYRIN IV PRN (14:30)
[2024-07-26] MEDS ORDERED: CLOP-31 PO (15:29)
[2024-07-26] MEDS ORDERED: INSULIN humuLIN R 100 UNIT/ML 3ML SQ SCH (16:30)
== END 2024-07-26 18:30 | disposition home or self-care (01) ==
LOC: DAH 07:50
PROVIDERS: ATTEND Internal Medicine Cardiovascular Disease
DX: I25.118 Atherosclerotic heart disease of native coronary artery with other forms of angina pectoris (principal); I10 Essential (primary) hypertension; E11.9 Type 2 diabetes mellitus without complications; G47.33 Obstructive sleep apnea (adult) (pediatric); J45.909 Unspecified asthma, uncomplicated; E78.5 Hyperlipidemia, unspecified; Z98.51 Tubal ligation status; E66.9 Obesity, unspecified; Z96.619 Presence of unspecified artificial shoulder joint; Z88.1 Allergy status to other antibiotic agents; Z88.8 Allergy status to other drugs, medicaments and biological substances; Z87.891 Personal history of nicotine dependence; Z79.82 Long term (current) use of aspirin; Z79.01 Long term (current) use of anticoagulants; Z79.4 Long term (current) use of insulin; Z79.899 Other long term (current) drug therapy; Z98.890 Other specified postprocedural states
CPT/HCPCS: 80048; 83880; 85025; 85610; 85730; 87086; 81001; 36415 ×2; 71045; 93005; 85347; 82948 ×2; 93458; C9600; C1769 ×3; C1887 ×4; C1874 ×3; A4649; C1894; C1725; J3490 ×3; J7030; J0461; J1644 ×2; J2250 ×3; J2175 ×3; Q9967; A4215; A4222; A4221; A4663; A4216; A4606; C9601; Q9965 ×2; A4223 ×3; 96360; 96361; 99156; 99157

== ENCOUNTER → 2024-07-29 | Outpatient (CLI) | payer MEDICARE ==
[~2024-07-29] MED LIST changes: +CLOP-31 PO
== END | disposition home or self-care (01) ==
LOC: RAH 14:12
PROVIDERS: ATTEND Internal Medicine Cardiovascular Disease
DX: I25.10 Atherosclerotic heart disease of native coronary artery without angina pectoris (principal)
CPT/HCPCS: 93306

== ENCOUNTER → 2024-11-24 | Outpatient (CLI) | payer MEDICARE ==
[~2024-11-24] MED LIST changes: -ACET-2079 PO; -ALBU0.63 NEB; +AMLO-257 PO; -AMLO-258 PO; -BUDE10.2 IH; +CHOL100034 PO; +CYAN1TAB44 PO; +FAMO40TA7 PO; +FOLIC ACID PO; +LOSA100T59 PO; -LOSA1TAB42 PO; +METH25VI11 SQ; +ROSU10TA72 PO; -ROSU5TAB43 PO; -TIRZ2.5P SQ; +TIRZ5PEN SQ; +TRAM-543 PO; +TRAZ-185 PO; +WOMEN S MVI PO; +[UNRECOGNIZED DRUG - OTHER] PO
--- NOTE | 2024-11-24 09:03 | HMCSR ---
APPROVED REPORT Indications r10.13 Duplex Results A/PTransverseLongitudinalVelocityWaveform Proximal Aorta 1.85cm2.16cm2.16cm79.30 cm/sec Mid Aorta 1.84cm1.87cm1.88cm65.40 cm/sec Distal Aorta 1.64cm1.64cm1.53cm68.40 cm/sec Rt. Common Iliac Artery0.99cm1.11cm0.89cm98.20 cm/sec Lt. Common Iliac Artery 1.05cm1.09cm0.40ty554.50 cm/sec Techologist Impression The abdominal aorta and the right and left common iliac arteries are patent and normal in size withou t evidence of aneurysm. Multiphasic waveforms in the bilateral iliac arteries. Celiac velocity measured 81.4c m/sec with a ratio of 1.03 SMA velocity measured 91.7 cm/sec with a ratio of 1.16 LILIANE velocity measured 174.6 cm/sec with a ratio of 2.55 Conclusion The abdominal aorta and the right and left common iliac arteries are patent and normal in size withou t evidence of aneurysm. Multiphasic waveforms in the bilateral iliac arteries. Celiac velocity measured 81.4c m/sec with a ratio of 1.03 SMA velocity measured 91.7 cm/sec with a ratio of 1.16 LILIANE velocity measured 174.6 cm/sec with a ratio of 2.55 Conclusion The abdominal aorta and the right and left common iliac arteries are patent and normal in size withou t evidence of aneurysm. Multiphasic waveforms in the bilateral iliac arteries. Celiac velocity measured 81.4c m/sec with a ratio of 1.03 SMA velocity measured 91.7 cm/sec with a ratio of 1.16 LILIANE velocity measured 174.6 cm/sec with a ratio of 2.55
== END | disposition home or self-care (01) ==
LOC: SHCH 07:55
PROVIDERS: ATTEND Internal Medicine Cardiovascular Disease
DX: R10.13 Epigastric pain (principal)
CPT/HCPCS: 93978

== ENCOUNTER → 2025-01-01 | Outpatient (CLI) | payer MEDICARE ==
--- NOTE | 2025-01-05 11:51 | HMCSR ---
APPROVED REPORT Laterality: Bilateral Indications r09.89 Doppler Spectral Velocity Analysis PSV / EDVPSV / EDV ECA (R) 60 / cm/sECA (L) 64 / cm/s dICA (R) 77 / 27 cm/sdICA (L) 60 / 24 cm/s Lauren (R) 92 / 32 cm/smICA (L) 70 / 24 cm/s pICA (R) 60 / 20 cm/spICA (L) 78 / 31 cm/s dCCA (R) 83 / 21 cm/sdCCA (L) 84 / 18 cm/s mCCA (R) 93 / 21 cm/smCCA (L) 101 / 23 cm/s pCCA (R) 92 / 22 cm/spCCA (L) 112 / 24 cm/s Vert (R) 37 / cm/sVert (L) 59 / cm/s Subl. (R) 137 / cm/sSubl. (L) 107 / cm/s ICA/CCA 0.99ICA/CCA 0.70 Technologist Impression Minimal plaque noted in the bilateral carotids. Right and left ICAs appear patent, without hemodynamic significance. Bilateral vertebral arteries appear antegrade. Conclusion Minimal plaque noted in the bilateral carotids. Right and left ICAs appear patent, without hemodynamic significance. Bilateral vertebral arteries appear antegrade. Conclusion Minimal plaque noted in the bilateral carotids. Right and left ICAs appear patent, without hemodynamic significance. Bilateral vertebral arteries appear antegrade.
--- NOTE | 2025-01-05 11:55 | HMCSR ---
APPROVED REPORT EXAM: Two-dimensional and M-mode echocardiogram with Doppler and color Doppler. INDICATION ICD: I10.0 Essential (primary) Hypertension 2D Dimensions RVDd3.4 cmLVEF(%)54.7 (>50%)LVED Vol(simp.)100.0 mL IVSd1.3 (0.7-1.1cm)FS(%)28 %LVES Vol(simp.)38.0 mL LVDd3.9 (3.8-5.6cm)Ao Root(2D)3.2 (2.0-3.7cm)LVEF(%, simp.)62 % PWd1.2 (0.7-1.1cm)LVOT diam2.0 (1.8-2.4cm)LA ESV INDEX (BP)32.08 mL/m2 LVDs2.8 (2.5-4.0cm)IVC diam1.5 cm Aortic Valve AoV Vmax1.4 m/Rafi Peak GR7.5 mmHgLVOT Vmax0.9 m/s AoV VTI0.3 mAo Mean GR4.5 mmHgLVOT VTI0.18 m NIKKI (VMAX)2.0 cm2AVA (VTI) 2.0 cm2 Mitral Valve MV E Vmax56.3 cm/sDECEL Qotq352 ms MV A Vmax77.4 cm/sP 1/2 T113 ms E/A ratio0.7MVA (PHT)2.0 cm2 TDI E/E' Dxfaca93.9E/E' Lateral5.5 Pulmonary Valve PV Vmax1.0 m/sPV VTI0.21 mPV Mean GR2 mmHg PV Peak GR3.9 mmHgPI End Keyanna. Walter 1.0 cm/s Tricuspid Valve TR Vmax2.4 m/sRAP (EST) 3 bkRmUKMF41.7 mmHg TR Peak GR22.7 mmHg Left Ventricle Left ventricular cavity size is normal. There is mild concentric left ventricular hypertrophy. LVEF i s 55%. No left ventricle thrombus noted on this study. Grade 1 diastolic dysfunction Right Ventricle The right ventricle is normal size. The right ventricular systolic function is normal. Atria The left atrium size is normal. The right atrium size is normal. Aortic Valve Aortic valve is trileaflet. Aortic valve leaflets are sclerotic but open well. Trace aortic regurgita tion. There is no aortic valvular stenosis. Mitral Valve Mitral valve leaflets are mildly sclerotic but open well. Mitral regurgitation is trace. There is no mitral valve stenosis. Tricuspid Valve The tricuspid valve leaflets appear normal. There is trace tricuspid regurgitation. Pulmonic Valve The pulmonic valve leaflets are thin and pliable; valve motion is normal. There is trace pulmonic rosanne vular regurgitation. Great Vessels The aortic root is normal in size. The IVC is normal in size and collapses >50% with inspiration. Pericardium No pericardial effusion. Conclusion Left ventricular cavity size is normal. There is mild concentric left ventricular hypertrophy. LVEF is 55%. Grade 1 diastolic dysfunction The right ventricle is normal size. The left atrium size is normal. Aortic valve is trileaflet. Aortic valve leaflets are sclerotic but open well. Trace aortic regurgitation. Mitral valve leaflets are mildly sclerotic but open well. Mitral regurgitation is trace. There is trace tricuspid regurgitation. There is trace pulmonic valvular regurgitation. The aortic root is normal in size. The IVC is normal in size and collapses >50% with inspiration. No pericardial effusion.
== END | disposition home or self-care (01) ==
LOC: SHCH 13:59
PROVIDERS: ATTEND Internal Medicine Cardiovascular Disease
DX: I08.0 Rheumatic disorders of both mitral and aortic valves (principal); I11.9 Hypertensive heart disease without heart failure; R09.89 Other specified symptoms and signs involving the circulatory and respiratory systems
CPT/HCPCS: 93306; 93880